=== PATIENT | female | born 1975 | race Caucasian/White ===

== ENCOUNTER 2017-06-13 08:37 | Emergency (ER) | payer OTHER ==
[~2017-06-13] VITALS: Ht 170.2 cm; Wt 82.0 kg
[~2017-06-13 08:37] MED LIST: METF1000 PO; TOPA100T11 PO; ZOFR4TAB PO; ZOLO50TA PO
[2017-06-13 08:39] VITALS: BP 150/81; PULSE 71; RESP 15; TEMP 98.1; O2SAT 99
--- NOTE | 2017-06-13 08:54 | PD ---
HPI Chief Complaint: Injury Time Seen by Provider: 08:53 Travel History International Travel<30 days: No Contact w/Intl Traveler<30days: No Traveled to known affect area: No History of Present Illness HPI 41 YO F presents to the ED for evaluation of left great toe pain and right ankle pain after dropping a box of tiles on her feet last night. She endorses worsening pain with ambulation. She denies numbness, tingling, weakness, limitations to range of motion of the extremity. Denies previous injury to the area. Treated with ibuprofen overnight. Denies risk of , endorses tubal ligation. PFSH Past Medical History Cardiovascular Problems: Yes (low hr) Diabetes: Yes Diminished Hearing: No Kidney Stones: Yes Immunizations Current: Yes Thyroid Disease: Yes (CURRENTLY BEING SEING FOR THYROID ISSUES) ?: Not : 3 Para: 2 Miscarriage: 1 : 0 Tubal Ligation: Yes Past Surgical History Section: Yes (2x) Gynecologic Surgery: Yes (C/SECTION X 2 ) Social History Alcohol Use: No Tobacco Use: No Substance Use: No Allergies-Medications (Allergen,Severity, Reaction): Coded Allergies: Atropine (Verified Allergy, Severe, SEVERE HYPERTENSION, TACHYCARDIA, 06/13) Dilaudid (Verified Allergy, Severe, Itching, 06/13/17) Sudafed (Verified Allergy, Severe, SOB, 06/13/17) Reported Meds & Prescriptions Reported Meds & Active Scripts Active Ibuprofen 600 Mg Tab 600 Mg PO Q8H PRN Zofran (Ondansetron HCl) 4 Mg Tab 4 Mg PO Q6HR PRN Reported Topamax (Topiramate) 100 Mg Tab 100 Mg PO DAILY Zoloft (Sertraline HCl) 50 Mg Tab 50 Mg PO DAILY Metformin (Metformin HCl) 1,000 Mg Tab 1,000 Mg PO BIDPC With meals Review of Systems Except as stated in HPI: all other systems reviewed are Neg Physical Exam Narrative GENERAL: Well-nourished, well-developed white female in no acute distress. SKIN: Focused skin assessment warm/dry. HEAD: Normocephalic. EYES: No scleral icterus. No injection or drainage. NECK: Supple, trachea midline. No JVD or lymphadenopathy. CARDIOVASCULAR: Regular rate and rhythm without murmurs, gallops, or rubs. RESPIRATORY: Breath sounds equal bilaterally. No accessory muscle use. GASTROINTESTINAL: Abdomen soft, non-tender, nondistended. MUSCULOSKELETAL: No cyanosis, or edema. FOCUSED LEFT LOWER EXTREMITY EXAM: 2+ DP pulse. Ecchymosis and tenderness to palpation over the dorsal aspect of the great toe. Patient maintains full, active range of motion of the ankle and toes. ROM of the great toe elicits pain. Neurovascularly intact. FOCUSED RIGHT LOWER EXTREMITY EXAM: 2+ DP pulse. Ecchymosis, edema, tenderness over the dorsal aspect of the distal calcaneus and bones of the midfoot. Patient maintains full, active range of motion of the ankle and toes. Neurovascularly intact. BACK: Nontender without obvious deformity. No CVA tenderness. Data Data Last Documented VS Vital Signs Date Time Temp Pulse Resp B/P Pulse Ox O2 Delivery O2 Flow Rate FiO2 06/13/17 09:33 76 18 99 Room Air 06/13/17 08:39 98.1 150/81 Orders Ankle, Complete ([id number]) (06/13/17 08:57) Toe (Min 2vws) (06/13/17 08:57) Ice/Cold Pack (06/13/17 08:57) Ibuprofen (Motrin) (06/13/17 09:00) Tramadol (Ultram) (06/13/17 09:00) Shoe Post Op (06/13/17 ) MDM Medical Decision Making Medical Screen Exam Complete: Yes Emergency Medical Condition: Yes Differential Diagnosis Contusion versus musculoskeletal pain versus fracture versus other Narrative Course 41 YO F presents to the ED for evaluation of left great toe pain and right ankle pain after dropping a box of tiles on her feet last night. She endorses worsening pain with ambulation. I was reviewed. Physical exam reveals ecchymosis of the MP joint of the left great toe, pain with range of motion. There is also an abrasion and edema of the dorsal aspect of the right ankle. Patient maintains full, active ROM of both lower extremities. Neurovascularly intact. X-rays of the great toe reveal no acute fracture. X-rays of the ankle reveal no acute injury per radiology read. This is contusion of the foot and great toe. Patient was prescribed a short course of anti-inflammatories, a postop shoe was applied to the left foot. She is instructed to treat symptomatically, take medications as prescribed, follow up with a strategy planning consultant if symptoms do not resolve. She indicated understanding of these instructions and is agreeable to the care plan. She is stable and discharged home. Diagnosis Primary Impression: Contusion of left great toe without damage to nail, initial encounter Additional Impression: Contusion of right ankle, initial encounter Referrals: Primary Care Physician Patient Instructions: Contusion in Adults (ED), General Instructions Additional Instructions: Rest, ice, elevate the extremity. Apply ice no longer than 10-15 minutes per hour a few times a day. 600 mg ibuprofen up to 3 times a day as needed for pain. Return to normal, gentle activity as tolerated. No running, jumping activities for the next few weeks. Follow up with strategy planning consultant or your primary care provider. Return to the ED for any urgent or emergent medical condition. Med/Other Pt SpecificInfo: Prescription(s) given Scripts Ibuprofen 600 Mg [id number] Mg PO Q8H PRN (PAIN) #15 TAB Ref 0 Prov:Heather Escobar MD 06/13/17 Disposition: 01 DISCHARGE HOME Condition: Stable Sarah Hartman Jun 13, 2017 08:54
[2017-06-13] MEDS ORDERED: traMADol HCL 50 MG TAB PO ONE (09:00)
[2017-06-13] MEDS ORDERED: IBUPROFEN 800 MG TAB PO ONE (09:00)
--- NOTE | 2017-06-13 09:23 | RADRPT ---
EXAM DATE/TIME: 06/13/2017 09:16 [facility] COMPARISON: No previous studies available for comparison. INDICATIONS : Right dorsal surface ankle pain after dropping box of tiles on foot. MEDICAL HISTORY : None. SURGICAL HISTORY : None. ENCOUNTER: Initial ACUITY: 1 day PAIN SCORE: 7/10 LOCATION: Right Ankle FINDINGS: No definite fractures, or dislocations are identified. No definite lytic or sclerotic lesion is seen . Calcaneal spur is present at the attachment site of the plantar aponeurosis. CONCLUSION: Unremarkable study except for calcaneal spur. José Miguel Powell MD on June 13, 2017 at 9:20 Board Certified Radiologist. This report was verified electronically.
--- NOTE | 2017-06-13 09:23 | RADRPT ---
EXAM DATE/TIME: 06/13/2017 09:20 [facility] COMPARISON: No previous studies available for comparison. INDICATIONS : Pain in left great toe after dropping a box of tile on it. MEDICAL HISTORY : None. SURGICAL HISTORY : None. ENCOUNTER: Initial ACUITY: 1 day PAIN SCORE: 8/10 LOCATION: Left Great Toe FINDINGS: No definite fractures, or dislocations are identified. No definite lytic or sclerotic lesion is seen . CONCLUSION: No definite fracture is seen for technique. KShonda Poewll MD on June 13, 2017 at 9:21 Board Certified Radiologist. This report was verified electronically.
[2017-06-13] MEDS ORDERED: IBUP-232 PO (09:27)
== END 2017-06-13 09:51 | disposition home or self-care (01) ==
LOC: NEPD 08:37
DX: S90.112A Contusion of left great toe without damage to nail, initial encounter (principal); S90.01XA Contusion of right ankle, initial encounter; E11.9 Type 2 diabetes mellitus without complications; E07.9 Disorder of thyroid, unspecified; Z86.79 Personal history of other diseases of the circulatory system; Z87.442 Personal history of urinary calculi; W20.8XXA Other cause of strike by thrown, projected or falling object, initial encounter
CPT/HCPCS: 73610; 73660; 99283; L3260

== ENCOUNTER 2017-12-21 12:46 | Emergency (ER) | payer OTHER ==
[~2017-12-21] VITALS: Ht 170.2 cm; Wt 95.5 kg
[~2017-12-21 12:46] MED LIST changes: +IBUP-232 PO; -TOPA100T11 PO; +TOPI100 PO
[2017-12-21 12:47] VITALS: BP 157/76; PULSE 106; RESP 18; TEMP 99.5; O2SAT 97
[2017-12-21 14:31] LABS: AUTOMATED NEUTROPHIL # 4.8 TH/MM3 (1.8-7.7); BASOPHIL # 0.1 TH/MM3 (0-0.2); BASOPHIL % 0.8 % (0.0-2.0); EOSINOPHIL # 0.2 TH/MM3 (0-0.4); EOSINOPHIL % 1.8 % (0.0-4.0); HEMATOCRIT 41.2 % (35.0-46.0); HEMOGLOBIN 14.1 GM/DL (11.6-15.3); LYMPH % 36.1 % (9.0-44.0); LYMPHOCYTE # 3.3 TH/MM3 (1.0-4.8); MEAN CELL VOLUME 84.9 FL (80.0-100.0); MEAN CORPUSCULAR HEMOGLOBIN 29.1 PG (27.0-34.0); MEAN CORPUSCULAR HGB CONC 34.3 % (32.0-36.0); MEAN PLATELET VOLUME 9.4 FL (7.0-11.0); MONO % 8.7 % (0.0-8.0); MONOCYTE # 0.8 TH/MM3 (0-0.9); NEUT % 52.6 % (16.0-70.0); PLATELET COUNT 273 TH/MM3 (150-450); RED BLOOD COUNT 4.85 MIL/MM3 (4.00-5.30); RED CELL DISTRIBUTION WIDTH 14.9 % (11.6-17.2); WHITE BLOOD COUNT 9.1 TH/MM3 (4.0-11.0)
[2017-12-21 14:37] LABS: AMORPHOUS SEDIMENT, URINE MOD; BACTERIA, URINE RARE /hpf; BILIRUBIN, URINE NEG (NEG); BLOOD, URINE NEG (NEG); GLUCOSE,URINE NEG (NEG); KETONE, URINE NEG (NEG); MUCUS URINE FEW /lpf (OCC); NITRITE,URINE NEG (NEG); PH, URINE 6.5 (5.0-8.5); SQUAMOUS EPITHELIAL CELL URINE 2 /hpf (0-5); URINE COLOR YELLOW (YELLW/STRAW); URINE LEUKOCYTE ESTERASE NEG (NEG)
[2017-12-21 14:52] LABS: ALBUMIN 3.9 GM/DL (3.4-5.0); ALT (GPT) 25 U/L (10-53); AST (GOT) 19 U/L (15-37); BICARBONATE 21.7 MEQ/L (21.0-32.0); BLOOD UREA NITROGEN 10 MG/DL (7-18); CALCIUM 8.4 MG/DL (8.5-10.1); CHLORIDE 114 MEQ/L (98-107); CREATININE 0.61 MG/DL (0.50-1.00); GLOMERULAR FILTRATION RATE 108 ML/MIN (>89); GLUCOSE,RANDOM 90 MG/DL (74-106); SODIUM (NA) 144 MEQ/L (136-145)
[2017-12-21 14:53] LABS: ALKALINE PHOSPHATASE 80 U/L (45-117); TOTAL BILIRUBIN ADULT 0.2 MG/DL (0.2-1.0); TOTAL PROTEIN 7.5 GM/DL (6.4-8.2)
[2017-12-21] MEDS ORDERED: SODIUM CHLOR 0.9% 1000 ML INJ 1,000 ML IV SCH (14:55)
[2017-12-21 15:00] VITALS: O2SAT 98
[2017-12-21] MEDS ORDERED: ONDANSETRON HCL 4 MG/2 ML VIAL IVP ONE (15:00)
[2017-12-21] MEDS ORDERED: LIDOCAINE VISCOUS 2% SOLN 15 ML UDC PO ONE (15:00)
[2017-12-21] MEDS ORDERED: FAMOTIDINE 20 MG/2 ML VIAL IV PUSH ONE (15:00)
[2017-12-21] MEDS ORDERED: ALUMINUM/MAGNESIUM/SIMETH 30 ML CUP PO ONE (15:00)
[2017-12-21] MEDS ORDERED: MORPHINE SULFATE 4 MG/ML INJ IV PUSH ONE (15:00)
[2017-12-21] MEDS ORDERED: SODIUM CHLORIDE 0.9% FLUSH 10 ML FLUSH IV FLUSH PRN (15:00)
--- NOTE | 2017-12-21 15:06 | PD ---
HPI Chief Complaint: Abdominal Pain Time Seen by Provider: 14:44 Travel History International Travel<30 days: No Contact w/Intl Traveler<30days: No Traveled to known affect area: No History of Present Illness HPI The patient is a 42-year-old female who presents to the emergency department for 3 days of nausea, vomiting, epigastric abdominal pain that radiates to the back, and diarrhea. The patient denies any fever, chills, or sweats. She does note nausea and vomiting. The patient has epigastric to left upper quadrant abdominal pain that radiates to the back, burning in nature. She does have a history of reflux with previous endoscopy revealing gastritis. She also complains of diarrhea that she describes as loose, watery, without any visible blood. She denies any recent international travel or sick contacts. Previous abdominal surgeries include section. She also complains of polyuria but denies any dysuria. She states she has not taken her metformin in a week and a half. Symptoms are moderate. There are no current alleviating or exacerbating factors. She has an appointment tomorrow with her primary physician. PFSH Past Medical History Cardiovascular Problems: Yes (low hr) Diabetes: Yes Patient Takes Glucophage: Yes Diminished Hearing: No Kidney Stones: Yes Immunizations Current: Yes Migraines: Yes Thyroid Disease: Yes (Darin's) ?: Not : 3 Para: 2 Miscarriage: 1 : 0 Tubal Ligation: Yes Past Surgical History Section: Yes (2x) Gynecologic Surgery: Yes (C/SECTION X 2 ) Social History Alcohol Use: No Tobacco Use: No Substance Use: No Allergies-Medications (Allergen,Severity, Reaction): Coded Allergies: atropine (Unverified Allergy, Severe, SEVERE HYPERTENSION, TACHYCARDIA, ) hydromorphone (Unverified Allergy, Severe, Itching, 06/28/17) pseudoephedrine (Unverified Allergy, Severe, SOB, 06/28/17) Reported Meds & Prescriptions Reported Meds & Active Scripts Active Reported Zoloft (Sertraline HCl) 50 Mg Tab 50 Mg PO DAILY Metformin (Metformin HCl) 1,000 Mg Tab 1,000 Mg PO BIDPC With meals Review of Systems Except as stated in HPI: all other systems reviewed are Neg General / Constitutional: No: Fever Cardiovascular: No: Chest Pain or Discomfort Respiratory: No: Shortness of Breath Gastrointestinal: Positive: Nausea, Vomiting, Diarrhea, Abdominal Pain, Indigestion Genitourinary: Positive: Frequency, No: Dysuria Endocrine: Positive: Polyuria Physical Exam Narrative GENERAL: Awake, alert, pleasant 42-year-old female who appears her stated age and is in no acute respiratory distress. SKIN: Focused skin assessment warm/dry. HEAD: Atraumatic. Normocephalic. EYES: Pupils equal and round. 3 mm bilateral and reactive. EOMs are intact. Patient is able to see fingers at a distance of 2 feet without difficulty. ENT: No nasal bleeding or discharge. Slightly dry mucous membranes. NECK: Trachea midline. No JVD. CARDIOVASCULAR: Regular rate and rhythm. No murmur appreciated. RESPIRATORY: No accessory muscle use. Clear to auscultation. Breath sounds equal bilaterally. GASTROINTESTINAL: Abdomen soft, mild epigastric tenderness. No guarding or rigidity. Negative Velazquez's. Negative McBurney's. No tenderness in the lower quadrants. Back: No CVA tenderness. MUSCULOSKELETAL: No obvious deformities. No clubbing. No cyanosis. No edema. NEUROLOGICAL: Awake and alert. No obvious cranial nerve deficits. Motor grossly within normal limits. Normal speech. PSYCHIATRIC: Appropriate mood and affect; insight and judgment normal. Data Data Last Documented VS Vital Signs Date Time Temp Pulse Resp B/P (MAP) Pulse Ox O2 Delivery O2 Flow Rate FiO2 12/21/17 15:00 98 Room Air 12/21/17 12:47 99.5 106 18 Orders Orders Complete Blood Count With Diff (12/21/17 12:55) Comprehensive Metabolic Panel (12/21/17 12:55) Lipase (12/21/17 12:55) Urinalysis - C+S If Indicated (12/21/17 12:55) Ed Urine Pregnancytest Poc (12/21/17 12:55) Influenzae A/B Antigen (12/21/17 12:55) Iv Access Insert/Monitor (12/21/17 14:55) Ecg Monitoring (12/21/17 14:55) Oximetry (12/21/17 14:55) Morphine Inj (Morphine Inj) (12/21/17 15:00) Ondansetron Inj (Zofran Inj) (12/21/17 15:00) Sodium Chlor 0.9% 1000 Ml Inj (Ns 1000 M (12/21/17 14:55) Sodium Chloride 0.9% Flush (Ns Flush) (12/21/17 15:00) Famotidine Inj (Pepcid Inj) (12/21/17 15:00) Al-Mag Hy-Si 40-40-4 Mg/Ml Liq (Mag-Al P (12/21/17 15:00) Lidocaine 2% Viscous (Xylocaine 2% Visco (12/21/17 15:00) Labs Laboratory Tests Test 12/21/17 13:51 White Blood Count 9.1 TH/MM3 Red Blood Count 4.85 MIL/MM3 Hemoglobin 14.1 GM/DL Hematocrit 41.2 % Mean Corpuscular Volume 84.9 FL Mean Corpuscular Hemoglobin 29.1 PG Mean Corpuscular Hemoglobin Concent 34.3 % Red Cell Distribution Width 14.9 % Platelet Count 273 TH/MM3 Mean Platelet Volume 9.4 FL Neutrophils (%) (Auto) 52.6 % Lymphocytes (%) (Auto) 36.1 % Monocytes (%) (Auto) 8.7 % Eosinophils (%) (Auto) 1.8 % Basophils (%) (Auto) 0.8 % Neutrophils # (Auto) 4.8 TH/MM3 Lymphocytes # (Auto) 3.3 TH/MM3 Monocytes # (Auto) 0.8 TH/MM3 Eosinophils # (Auto) 0.2 TH/MM3 Basophils # (Auto) 0.1 TH/MM3 CBC Comment DIFF FINAL Differential Comment Urine Color YELLOW Urine Turbidity HAZY Urine pH 6.5 Urine Specific [place] 1.024 Urine Protein TRACE mg/dL Urine Glucose (UA) NEG mg/dL Urine Ketones NEG mg/dL Urine Occult Blood NEG Urine Nitrite NEG Urine Bilirubin NEG Urine Urobilinogen LESS THAN 2.0 MG/DL Urine Leukocyte Esterase NEG Urine RBC 1 /hpf Urine Squamous Epithelial Cells 2 /hpf Urine Amorphous Sediment MOD Urine Bacteria RARE /hpf Urine Mucus FEW /lpf Microscopic Urinalysis Comment CULT NOT INDICATED Blood Urea Nitrogen 10 MG/DL Creatinine 0.61 MG/DL Random Glucose 90 MG/DL Total Protein 7.5 GM/DL Albumin 3.9 GM/DL Calcium Level 8.4 MG/DL Alkaline Phosphatase 80 U/L Aspartate Amino Transf (AST/SGOT) 19 U/L Alanine Aminotransferase (ALT/SGPT) 25 U/L Total Bilirubin 0.2 MG/DL Sodium Level 144 MEQ/L Potassium Level 3.7 MEQ/L Chloride Level 114 MEQ/L Carbon Dioxide Level 21.7 MEQ/L Anion Gap 8 MEQ/L Estimat Glomerular Filtration Rate 108 ML/MIN Lipase 155 U/L [facility] Medical Decision Making Medical Screen Exam Complete: Yes Emergency Medical Condition: Yes Medical Record Reviewed: Yes Interpretation(s) Laboratory Tests Test 12/21/17 13:51 White Blood Count 9.1 TH/MM3 Red Blood Count 4.85 MIL/MM3 Hemoglobin 14.1 GM/DL Hematocrit 41.2 % Mean Corpuscular Volume 84.9 FL Mean Corpuscular Hemoglobin 29.1 PG Mean Corpuscular Hemoglobin Concent 34.3 % Red Cell Distribution Width 14.9 % Platelet Count 273 TH/MM3 Mean Platelet Volume 9.4 FL Neutrophils (%) (Auto) 52.6 % Lymphocytes (%) (Auto) 36.1 % Monocytes (%) (Auto) 8.7 % Eosinophils (%) (Auto) 1.8 % Basophils (%) (Auto) 0.8 % Neutrophils # (Auto) 4.8 TH/MM3 Lymphocytes # (Auto) 3.3 TH/MM3 Monocytes # (Auto) 0.8 TH/MM3 Eosinophils # (Auto) 0.2 TH/MM3 Basophils # (Auto) 0.1 TH/MM3 CBC Comment DIFF FINAL Differential Comment Urine Color YELLOW Urine Turbidity HAZY Urine pH 6.5 Urine Specific [place] 1.024 Urine Protein TRACE mg/dL Urine Glucose (UA) NEG mg/dL Urine Ketones NEG mg/dL Urine Occult Blood NEG Urine Nitrite NEG Urine Bilirubin NEG Urine Urobilinogen LESS THAN 2.0 MG/DL Urine Leukocyte Esterase NEG Urine RBC 1 /hpf Urine Squamous Epithelial Cells 2 /hpf Urine Amorphous Sediment MOD Urine Bacteria RARE /hpf Urine Mucus FEW /lpf Microscopic Urinalysis Comment CULT NOT INDICATED Blood Urea Nitrogen 10 MG/DL Creatinine 0.61 MG/DL Random Glucose 90 MG/DL Total Protein 7.5 GM/DL Albumin 3.9 GM/DL Calcium Level 8.4 MG/DL Alkaline Phosphatase 80 U/L Aspartate Amino Transf (AST/SGOT) 19 U/L Alanine Aminotransferase (ALT/SGPT) 25 U/L Total Bilirubin 0.2 MG/DL Sodium Level 144 MEQ/L Potassium Level 3.7 MEQ/L Chloride Level 114 MEQ/L Carbon Dioxide Level 21.7 MEQ/L Anion Gap 8 MEQ/L Estimat Glomerular Filtration Rate 108 ML/MIN Lipase 155 U/L Differential Diagnosis Differential diagnosis includes gastroenteritis, pancreatitis, colitis, enteritis, food poisoning, electrolyte abnormality. Narrative Course IV was established, labs are drawn and sent, and the patient was placed on cardiac telemetry monitoring and continuous pulse oximetry monitoring. The patient was administered Pepcid, morphine, Zofran, GI cocktail, and IV fluids. Labs are unremarkable. White count is normal. LFTs and lipase are within normal limits. UA is negative. Patient was reevaluated at 4:40 PM. Her symptoms had improved, she still had mild epigastric burning. Patient most likely has gastritis and/or peptic ulcer disease and topic gastroenteritis. The patient was placed on Zantac, Zofran, and Newborn. She will be provided a copy of her labs at discharge. She has an appointment tomorrow morning with her primary physician, Dr. Cipriano Mace. She is advised if symptoms persist she may need to see gastroenterology for outpatient endoscopy. The patient agrees and understands. Diagnosis Primary Impression: Gastroenteritis Patient Instructions: General Instructions Additional Instructions: Please provide a patient a copy of her labs at discharge. Follow-up with her primary physician tomorrow as scheduled. Zantac twice a day. Avoid spearmint, peppermint, alcohol, nicotine, and spicy foods. Clear liquid diet and advance as tolerated. Med/Other Pt SpecificInfo: Prescription(s) given Scripts Ondansetron Odt (Zofran Odt) 4 Mg Tab 4 MG SL Q6HR Y for Nausea/Vomiting, #10 TAB 0 Refills Prov: Guicho Hu MD 12/21/17 Hydrocodone-Acetaminophen (Newborn) 5 Mg-325 Mg Tab 1 TAB PO Q6H Y for PAIN, #12 TAB 0 Refills Prov: Guicho Hu MD 12/21/17 Ranitidine (Zantac 150 Maximum Strength) 150 Mg Tab 150 MG PO BID for 14 Days, #28 TAB Prov: Guicho Hu MD 12/21/17 Disposition: 01 DISCHARGE HOME Condition: Stable Guicho Hu MD Dec 21, 2017 15:06
[2017-12-21] MEDS ORDERED: NORC5TAB PO (16:46)
[2017-12-21] MEDS ORDERED: ZOFR4TAB3 SL (16:46)
[2017-12-21] MEDS ORDERED: ZANTTAB PO (16:46)
[2017-12-21 18:15] VITALS: RESP 16
== END 2017-12-21 18:16 | disposition home or self-care (01) ==
LOC: NEPD 12:46
DX: K52.9 Noninfective gastroenteritis and colitis, unspecified (principal); E11.9 Type 2 diabetes mellitus without complications; E06.3 Autoimmune thyroiditis
CPT/HCPCS: 80053; 81001; 83690; 84703; 85025; 87804; 96361; 96374; 96375; 99284; J2270; J2405; J7030

== ENCOUNTER 2018-03-16 05:27 | Emergency (ER) | payer SELFPAY ==
[~2018-03-16 05:27] MED LIST changes: -IBUP-232 PO; +NORC5TAB PO; -TOPI100 PO; +ZANTTAB PO; -ZOFR4TAB PO; +ZOFR4TAB3 SL
[2018-03-16 05:31] VITALS: BP 160/77; PULSE 83; RESP 18; TEMP 97.2; O2SAT 99
[2018-03-16] MEDS ORDERED: SODIUM CHLORIDE 0.9% FLUSH 10 ML FLUSH IVF PRN (05:45)
[2018-03-16] MEDS ORDERED: PROCHLORPERAZINE INJ 10 MG/2 ML VIAL IVP ONE (05:45)
[2018-03-16] MEDS ORDERED: SODIUM CHLORID 0.9% 500 ML INJ 500 ML IV ONE (06:00)
[2018-03-16 06:04] LABS: AUTOMATED NEUTROPHIL # 3.9 TH/MM3 (1.8-7.7); BASOPHIL % 0.5 % (0.0-2.0); EOSINOPHIL # 0.2 TH/MM3 (0-0.4); HEMOGLOBIN 13.7 GM/DL (11.6-15.3); LYMPH % 42.7 % (9.0-44.0); LYMPHOCYTE # 3.8 TH/MM3 (1.0-4.8); MEAN CELL VOLUME 84.8 FL (80.0-100.0); MEAN CORPUSCULAR HGB CONC 34.3 % (32.0-36.0); MEAN PLATELET VOLUME 9.7 FL (7.0-11.0); MONO % 10.4 % (0.0-8.0); MONOCYTE # 0.9 TH/MM3 (0-0.9); NEUT % 44.4 % (16.0-70.0); PLATELET COUNT 250 TH/MM3 (150-450); RED BLOOD COUNT 4.71 MIL/MM3 (4.00-5.30); RED CELL DISTRIBUTION WIDTH 14.5 % (11.6-17.2); WHITE BLOOD COUNT 8.9 TH/MM3 (4.0-11.0)
[2018-03-16 06:14] VITALS: O2SAT 97
[2018-03-16 06:19] LABS: ALBUMIN 3.4 GM/DL (3.4-5.0); ALT (GPT) 23 U/L (10-53); AST (GOT) 17 U/L (15-37); BLOOD UREA NITROGEN 9 MG/DL (7-18); CALCIUM 8.7 MG/DL (8.5-10.1); CHLORIDE 109 MEQ/L (98-107); GLOMERULAR FILTRATION RATE 92 ML/MIN (>89); GLUCOSE,RANDOM 93 MG/DL (74-106); SODIUM (NA) 142 MEQ/L (136-145)
--- NOTE | 2018-03-16 06:20 | PD ---
HPI Chief Complaint: Headache Time Seen by Provider: 05:37 Travel History International Travel<30 days: No Contact w/Intl Traveler<30days: No Traveled to known affect area: No History of Present Illness HPI Patient presents to the emergency department complaint of headache and feeling "sick to my stomach." Pain started 3:30 this morning while she was asleep. She does have a history of migraines, but states that this headache is more intense. Reports photophobia, but denies numbness/tingling/vision change. Advises that she has a rash from the sun across her chest and she has chronic neck pain. Of note she states the neck pain is common with her migraine headaches. Additionally, she was reportedly going to get neck injection thsi week to help with her chronic neck pain. PFSH Past Medical History Cardiovascular Problems: Yes (low hr) Diabetes: Yes Patient Takes Glucophage: No Diminished Hearing: No Kidney Stones: Yes Immunizations Current: Yes Migraines: Yes Thyroid Disease: Yes (Darin's) ?: Not LMP: 02/23/18 : 3 Para: 2 Miscarriage: 1 : 0 Tubal Ligation: Yes Past Surgical History Section: Yes (2x) Gynecologic Surgery: Yes (C/SECTION X 2 ) Social History Alcohol Use: No Tobacco Use: Yes Substance Use: No Allergies-Medications (Allergen,Severity, Reaction): Coded Allergies: atropine (Unverified Allergy, Severe, SEVERE HYPERTENSION, TACHYCARDIA, 03/16/18) hydromorphone (Unverified Allergy, Severe, Itching, 03/16/18) pseudoephedrine (Unverified Allergy, Severe, SOB, 03/16/18) Reported Meds & Prescriptions Reported Meds & Active Scripts Active Zantac 150 Maximum Strength (Ranitidine HCl) 150 Mg Tab 150 Mg PO BID 14 Days Reported Zoloft (Sertraline HCl) 50 Mg Tab 50 Mg PO DAILY Metformin (Metformin HCl) 1,000 Mg Tab 1,000 Mg PO BIDPC With meals Review of Systems Except as stated in HPI: all other systems reviewed are Neg Physical Exam Narrative GENERAL: Positive discomfort SKIN: Focused skin assessment warm/dry; + sunburn on anterior aspect of chest, primarily L breast area. HEAD: Atraumatic. Normocephalic. EYES: Pupils equal and round and Extraocular muscles intact bilat. No scleral icterus. No injection or drainage. ENT: No nasal bleeding or discharge. Mucous membranes pink and moist. NECK: Trachea midline. No JVD. Supple, full range of motion. No meningeal signs. CARDIOVASCULAR: Regular rate and rhythm. No murmur appreciated. RESPIRATORY: No accessory muscle use. Clear to auscultation. Breath sounds equal bilaterally. GASTROINTESTINAL: Abdomen soft, non-tender, nondistended. MUSCULOSKELETAL: No obvious deformities. No clubbing. No cyanosis. No edema. NEUROLOGICAL: Awake and alert. No obvious cranial nerve deficits. Motor grossly within normal limits. Normal speech. PSYCHIATRIC: Appropriate mood and affect; insight and judgment normal. Data Data Last Documented VS Vital Signs Date Time Temp Pulse Resp B/P (MAP) Pulse Ox O2 Delivery O2 Flow Rate FiO2 03/16/18 06:14 97 Room Air 03/16/18 05:31 97.2 83 18 Orders Orders Complete Blood Count With Diff (03/16/18 05:45) Comprehensive Metabolic Panel (03/16/18 05:45) Ct Brain W/O Iv Contrast(Rout) (03/16/18 05:45) Ecg Monitoring (03/16/18 05:45) Iv Access Insert/Monitor (03/16/18 05:45) Oximetry (03/16/18 05:45) Sodium Chloride 0.9% Flush (Ns Flush) (03/16/18 05:45) Prochlorperazine Inj (Compazine Inj) (03/16/18 05:45) Ed Urine Pregnancytest Poc (03/16/18 05:45) Sodium Chlorid 0.9% 500 Ml Inj (Ns 500 M (03/16/18 06:00) Ketorolac Inj (Toradol Inj) (03/16/18 07:15) Labs Laboratory Tests Test 03/16/18 05:50 White Blood Count 8.9 TH/MM3 Red Blood Count 4.71 MIL/MM3 Hemoglobin 13.7 GM/DL Hematocrit 40.0 % Mean Corpuscular Volume 84.8 FL Mean Corpuscular Hemoglobin 29.0 PG Mean Corpuscular Hemoglobin Concent 34.3 % Red Cell Distribution Width 14.5 % Platelet Count 250 TH/MM3 Mean Platelet Volume 9.7 FL Neutrophils (%) (Auto) 44.4 % Lymphocytes (%) (Auto) 42.7 % Monocytes (%) (Auto) 10.4 % Eosinophils (%) (Auto) 2.0 % Basophils (%) (Auto) 0.5 % Neutrophils # (Auto) 3.9 TH/MM3 Lymphocytes # (Auto) 3.8 TH/MM3 Monocytes # (Auto) 0.9 TH/MM3 Eosinophils # (Auto) 0.2 TH/MM3 Basophils # (Auto) 0.0 TH/MM3 CBC Comment DIFF FINAL Differential Comment Blood Urea Nitrogen 9 MG/DL Creatinine 0.70 MG/DL Random Glucose 93 MG/DL Total Protein 7.0 GM/DL Albumin 3.4 GM/DL Calcium Level 8.7 MG/DL Alkaline Phosphatase 76 U/L Aspartate Amino Transf (AST/SGOT) 17 U/L Alanine Aminotransferase (ALT/SGPT) 23 U/L Total Bilirubin 0.2 MG/DL Sodium Level 142 MEQ/L Potassium Level 3.9 MEQ/L Chloride Level 109 MEQ/L Carbon Dioxide Level 26.0 MEQ/L Anion Gap 7 MEQ/L Estimat Glomerular Filtration Rate 92 ML/MIN [facility] Medical Decision Making Medical Screen Exam Complete: Yes Emergency Medical Condition: Yes Interpretation(s) Labs: wnl Last Impressions Head CT 03/16/18 0545 Signed Impressions: Service Date/Time: March 06:32 - CONCLUSION: Negative exam. Hany Ribeiro MD Differential Diagnosis Migraine headache, tension headache, intracranial abnormality Narrative Course Patient presents to the emergency department complaining of headache and nausea / vomiting. She does have a history of migraines. Given 10 mg IV Compazine and IV 500cc NS initially while awaiting CT scan. 0701: Patient's CT scan resulted negative. Upon reassessment, patient reports feeling better, n/v resolved. Will give another 500cc IV NS and 30mg IV toradol and sign patient out to Dr. Escobar for reassessment. Diagnosis Primary Impression: Migraine Qualified Codes: G43.909 - Migraine, unspecified, not intractable, without status migrainosus Cheryl Burnett MD March 16, 2018 06:20
[2018-03-16 06:22] LABS: ALKALINE PHOSPHATASE 76 U/L (45-117); TOTAL BILIRUBIN ADULT 0.2 MG/DL (0.2-1.0)
--- NOTE | 2018-03-16 06:49 | RADRPT ---
EXAM DATE/TIME: 03/16/2018 06:32 [facility] COMPARISON: No previous studies available for comparison. INDICATIONS : Cephalgia. RADIATION DOSE: 56.35 CTDIvol (mGy) MEDICAL HISTORY : Hashimotos disease. SURGICAL HISTORY : None. ENCOUNTER: Initial ACUITY: 1 day PAIN SCALE: 7/10 LOCATION: cranial TECHNIQUE: Multiple contiguous axial images were obtained of the head. Using automated exposure control and adj ustment of the mA and/or kV according to patient size, radiation dose was kept as low as reasonably a chievable to obtain optimal diagnostic quality images. DICOM format image data is available electro nically for review and comparison. FINDINGS: CEREBRUM: The ventricles are normal for age. No evidence of midline shift, mass lesion, hemorrhage or acute in farction. No extra-axial fluid collections are seen. POSTERIOR FOSSA: The cerebellum and brainstem are intact. The 4th ventricle is midline. The cerebellopontine angle i s unremarkable. EXTRACRANIAL: The visualized portion of the orbits is intact. SKULL: The calvaria is intact. No evidence of skull fracture. CONCLUSION: Negative exam. Hany Ribeiro MD on March 16, 2018 at 6:46 Board Certified Radiologist. This report was verified electronically.
[2018-03-16] MEDS ORDERED: KETOROLAC TROMETHAMINE 30 MG/ML (IVP) VIAL IV PUSH ONE (07:15)
[2018-03-16] MEDS ORDERED: NAPR500T2 PO (07:47)
--- NOTE | 2018-03-16 07:47 | PD ---
Data Data Last Documented VS Vital Signs Date Time Temp Pulse Resp B/P (MAP) Pulse Ox O2 Delivery O2 Flow Rate FiO2 03/16/18 06:14 97 Room Air 03/16/18 05:31 97.2 83 18 Orders Orders Complete Blood Count With Diff (03/16/18 05:45) Comprehensive Metabolic Panel (03/16/18 05:45) Ct Brain W/O Iv Contrast(Rout) (03/16/18 05:45) Ecg Monitoring (03/16/18 05:45) Iv Access Insert/Monitor (03/16/18 05:45) Oximetry (03/16/18 05:45) Sodium Chloride 0.9% Flush (Ns Flush) (03/16/18 05:45) Prochlorperazine Inj (Compazine Inj) (03/16/18 05:45) Ed Urine Pregnancytest Poc (03/16/18 05:45) Sodium Chlorid 0.9% 500 Ml Inj (Ns 500 M (03/16/18 06:00) Ketorolac Inj (Toradol Inj) (03/16/18 07:15) Labs Laboratory Tests Test 03/16/18 05:50 White Blood Count 8.9 TH/MM3 Red Blood Count 4.71 MIL/MM3 Hemoglobin 13.7 GM/DL Hematocrit 40.0 % Mean Corpuscular Volume 84.8 FL Mean Corpuscular Hemoglobin 29.0 PG Mean Corpuscular Hemoglobin Concent 34.3 % Red Cell Distribution Width 14.5 % Platelet Count 250 TH/MM3 Mean Platelet Volume 9.7 FL Neutrophils (%) (Auto) 44.4 % Lymphocytes (%) (Auto) 42.7 % Monocytes (%) (Auto) 10.4 % Eosinophils (%) (Auto) 2.0 % Basophils (%) (Auto) 0.5 % Neutrophils # (Auto) 3.9 TH/MM3 Lymphocytes # (Auto) 3.8 TH/MM3 Monocytes # (Auto) 0.9 TH/MM3 Eosinophils # (Auto) 0.2 TH/MM3 Basophils # (Auto) 0.0 TH/MM3 CBC Comment DIFF FINAL Differential Comment Blood Urea Nitrogen 9 MG/DL Creatinine 0.70 MG/DL Random Glucose 93 MG/DL Total Protein 7.0 GM/DL Albumin 3.4 GM/DL Calcium Level 8.7 MG/DL Alkaline Phosphatase 76 U/L Aspartate Amino Transf (AST/SGOT) 17 U/L Alanine Aminotransferase (ALT/SGPT) 23 U/L Total Bilirubin 0.2 MG/DL Sodium Level 142 MEQ/L Potassium Level 3.9 MEQ/L Chloride Level 109 MEQ/L Carbon Dioxide Level 26.0 MEQ/L Anion Gap 7 MEQ/L Estimat Glomerular Filtration Rate 92 ML/MIN [facility] Supervised Visit with VINICIUS: Yes Narrative Course This is a 42-year-old female who presents to the emergency department with headache similar to prior migraine headaches but worse today. CT scan is reassuring. Patient has a normal gross neurologic exam. She feels much better after Compazine and IV fluids. Patient will be discharged home on anti- inflammatories. I doubt subarachnoid hemorrhage given the similarity of the patient's headache to her prior. Diagnosis Primary Impression: Migraine Qualified Codes: G43.909 - Migraine, unspecified, not intractable, without status migrainosus Patient Instructions: General Instructions Additional Instruction: If you develop severe worsening headache, persistent vomiting, numbness, weakness, difficulty walking or difficulty talking return to the emergency department immediately. Sometimes in the emergency department we did not identify the cause of headaches. If you continued to have headaches it is very important that you followup with your primary care physician as you may need further testing with an MRI. Med/Other Pt SpecificInfo: Prescription(s) given Scripts Naproxen (Naproxen) 500 Mg Tab 500 MG PO BID Y for PAIN SCALE 4 TO 10, #20 TAB 0 Refills Prov: Heather Escobar MD 03/16/18 Disposition: 01 DISCHARGE HOME Condition: Stable Heather Escobar MD March 16, 2018 07:47
== END 2018-03-16 09:13 | disposition home or self-care (01) ==
LOC: NEPC 05:27
DX: G43.909 Migraine, unspecified, not intractable, without status migrainosus (principal); E11.9 Type 2 diabetes mellitus without complications; Z79.84 Long term (current) use of oral hypoglycemic drugs
CPT/HCPCS: 70450; 80053; 84703; 85025; 96361; 96374; 96375; 99284; J0780; J1885; J7040

== ENCOUNTER 2018-08-21 12:33 | Observation (INO) ==
[2018-08-21] MEDS ORDERED: Aspirin 325 MG Tablet PO ONE (12:43)
[2018-08-21] MEDS ORDERED: PROPRANOLOL 1 MG/ML IV.PUSH ONE (12:58)
--- NOTE | 2018-08-21 13:27 | XR ---
EXAM DATE: 08/21/2018 12:43 PM EDT AGE/SEX: 42 years / Female INDICATIONS: Chest pain. CLINICAL DATA: This is the patient's initial encounter. Patient reports that signs and symptoms have been present for 1 day and indicates a pain score of 8/10. MEDICAL/SURGICAL HISTORY: None. None. [place] [facility] [place]. . FINDINGS: A single AP view of the chest demonstrates the lungs to be symmetrically aerated without evidence of mass, infiltrate or effusion. The cardiomediastinal contours are unremarkable. Osseous structures a re intact. CONCLUSION: No acute cardiopulmonary disease Electronically signed by: David Oro MD 08/21/2018 1:25 PM EDT
[2018-08-21 13:36] LABS: Baso % (Auto) 0.7 % (0.0-2.0); Eos # (Auto) 0.2 th/mm3 (0.0-0.4); Eos % (Auto) 2.4 % (0.0-4.0); Hematocrit 41.7 % (35.0-46.0); Hemoglobin 14.3 gm/dL (11.6-15.3); Lymph # (Auto) 2.6 th/mm3 (1.0-4.8); Lymph % (Auto) 38.3 % (9.0-44.0); Mean Corpuscular HGB Conc 34.2 % (32.0-36.0); Mean Corpuscular Hemoglobin 29.5 pg (27.0-34.0); Mean Corpuscular Volume 86.4 fL (80.0-100.0); Mean Platelet Volume 9.6 fL (7.0-11.0); Mono # (Auto) 0.5 th/mm3 (0.0-0.9); Neut # (Auto) 3.5 th/mm3 (1.8-7.7); Neut % (Auto) 51.6 % (16.0-70.0); Platelet Count 244 th/mm3 (150-450); Red Blood Count 4.83 mil/mm3 (4.00-5.30); Red Cell Distribution Width 13.8 % (11.6-17.2); White Blood Count 6.8 th/mm3 (4.0-11.0)
[2018-08-21 13:50] LABS: Activated Partial Thrombo Time 26.1 sec (24.3-30.1); Prothrombin Time 10.2 sec (9.8-11.6)
--- NOTE | 2018-08-21 14:38 | ED ---
HPI General Chief complaint: Chest Pain Stated complaint: chest pain Time Seen by Provider: 08/21/18 12:42 Source: patient Mode of arrival: ambulatory Limitations: no limitations History of Present Illness HPI narrative: 42-year-old female that presents to the ED for evaluation of shortness of breath and chest pain for the past 3 days. Per patient is been going on for about 3 days now. Per patient no changes in medication recently. She does have a history of bradycardia in the past after she had her child. Per patient she was given atropine and she had an allergy to it. Per patient she has not had any issues since. Denies any urinary or bowel movement issues. Denies any recent travel. No recent surgeries. Per patient currently she mainly takes medications for anxiety and depression. She states that she is never had this before. She feels like she is palpitating as well. Per patient the symptoms do not really get better or worse with anything. She did not took anything for this. She was not seen by anybody for this. Per patient the discomfort is 6 out of 10 and feels like a pressure on her chest. She does state that she has a history of Darin's and Graves' disease but she is currently not being treated for it. Per patient she has not about this disease for a few years but she has never been given any medications for it. Unclear as to why. Per patient she does follow regularly with an grizzly worker for this. Related Data Home Medications Medication Instructions Recorded Confirmed sumatriptan-naproxen 1 tab PO Q2-4H PRN 06/15/18 08/21/18 gabapentin 600 mg PO DAILY 08/21/18 08/21/18 metformin 1,000 mg PO BID 08/21/18 08/21/18 Previous Rx's Medication Instructions Recorded ibuprofen 800 mg PO Q8H PRN #20 tab 06/16/18 Allergies Allergy/AdvReac Type Severity Reaction Status Date / Time atropine Allergy Severe SEVERE Verified 08/21/18 12:48 HYPERTENSION, TACHYCARDIA hydromorphone Allergy Severe Itching Verified 08/21/18 12:48 pseudoephedrine Allergy Severe SOB Verified 08/21/18 12:48 Review of Systems ROS: all other systems reviewed are negative [facility] Medical History Medical History Borderline type 2 diabetes mellitus (Acute) Chronic back pain (Acute) Darin's disease (Acute) Migraine (Acute) Surgical History Surgical History H/O tubal ligation (Acute) H/O: section (Acute) Social History Social History Substance History: No History of Abuse Second Hand Smoke Exposure: No Smoking Status: Current every day smoker Tobacco Type: Cigarettes Packs Per Day: 1 Cigarettes Per Day: 20.0 Years Smoked: 25 Pack-Years: 25.00 How Often Do You Have a Drink Containing Alcohol: Never Recent Out of Country Travel within the Last 8 Weeks: No Immunization History Tetanus Immunization: >5 Years Exam Narrative Exam Narrative: GENERAL: Well appearing SKIN: Focused skin assessment warm/dry. HEAD: Atraumatic. Normocephalic. EYES: Pupils equal and round. No scleral icterus. No injection or drainage. ENT: No nasal bleeding or discharge. Mucous membranes pink and moist. Tongue is midline. No uvula deviation. NECK: Trachea midline. No JVD. CARDIOVASCULAR: Tachycardic rate and rhythm. No murmur appreciated. RESPIRATORY: No accessory muscle use. Clear to auscultation. Breath sounds equal bilaterally. GASTROINTESTINAL: Abdomen soft, non-tender, nondistended. Hepatic and splenic margins not palpable. MUSCULOSKELETAL: No obvious deformities. No clubbing. No cyanosis. No edema. Full range of motion of the upper and lower extremities bilaterally. 2+ pulses bilaterally. NEUROLOGICAL: Awake and alert. No obvious cranial nerve deficits. Motor grossly within normal limits. Normal speech. PSYCHIATRIC: Appropriate mood and affect; insight and judgment normal. Course Initial Documented Vital Signs Temperature 98.4 F 08/21/18 12:37 Pulse Rate 154 H 08/21/18 12:37 Respiratory Rate 26 H 08/21/18 12:37 Blood Pressure 179/93 H 08/21/18 12:37 Pulse Oximetry 100 08/21/18 12:37 Last Documented Vital Signs Temperature 98.6 F 08/21/18 17:48 Pulse Rate 82 08/21/18 17:48 Respiratory Rate 20 08/21/18 17:48 Blood Pressure 114/83 08/21/18 17:48 Pulse Oximetry 97 08/21/18 17:48 Medical Decision Making MDM Narrative Medical decision making narrative: 42-year-old female that presents to the ED for evaluation of chest pain and tachycardia. Patient was properly examined and was found to have signs and symptoms consistent with appears to be possible cardiac. Patient is tachycardic in the 120s 130s. She does have a history of thyroid disease. Thyroiditis in the differential. Patient was given propanolol per my attendings recommendation to cover for this. She was given aspirin as well. Labs and imaging ordered and showed no sign of acute disease alert and what appears to be tachycardia. Otherwise unremarkable. Patient still somewhat symptomatic. There was essentially unremarkable. Case was discussed with my attending Dr. Celis who recommends admission to r/o ACS. Patient was admitted to the chest pain center by me. Medical Screen Exam Complete: Yes Emergency Medical Condition: Yes Differential Diagnosis Differential Diagnosis: Tachycardia versus SVT versus thyroiditis versus thyroid disease versus PE versus anxiety versus chest pain versus ACS Medical Records Medical records reviewed: Yes I reviewed the patient's medical records. Lab Data Lab results reviewed: Yes I reviewed the patient's lab results. Lab results narrative: Troponin and CK-MB negative. TSH and thyroid negative. Result diagrams: 08/21/18 12:55 08/21/18 14:25 Lab Results 08/21/18 08/21/18 08/21/18 Range/Units 12:55 12:55 14:25 WBC 6.8 (4.0-11.0) th/mm3 RBC 4.83 (4.00-5.30) mil/mm3 Hgb 14.3 (11.6-15.3) gm/dL Hct 41.7 (35.0-46.0) % MCV 86.4 (80.0-100.0) fL MCH 29.5 (27.0-34.0) pg MCHC 34.2 (32.0-36.0) % RDW 13.8 (11.6-17.2) % Plt Count 244 (150-450) th/mm3 MPV 9.6 (7.0-11.0) fL Neut % (Auto) 51.6 (16.0-70.0) % Lymph % (Auto) 38.3 (9.0-44.0) % [place] % (Auto) 7.0 (0.0-8.0) % Eos % (Auto) 2.4 (0.0-4.0) % Baso % (Auto) 0.7 (0.0-2.0) % Neut # (Auto) 3.5 (1.8-7.7) th/mm3 Lymph # (Auto) 2.6 (1.0-4.8) th/mm3 [place] # (Auto) 0.5 (0.0-0.9) th/mm3 Eos # (Auto) 0.2 (0.0-0.4) th/mm3 Baso # (Auto) 0.0 (0.0-0.2) th/mm3 WBC Differential . Differential Comment Auto diff final PT 10.2 (9.8-11.6) sec INR 1.0 Ratio APTT 26.1 (24.3-30.1) sec Sodium Potassium Chloride Carbon Dioxide Anion Gap BUN Creatinine Estimated GFR Random Glucose Calcium Prot Corrected Calcium Total Bilirubin AST ALT Alkaline Phosphatase Total Creatine Kinase CK-MB (CK-2) (0.5-3.6) ng/mL Troponin I B-Natriuretic Peptide 4 (0-100) pg/mL Total Protein Albumin TSH (0.358-3.740) uIU/mL Free T4 (0.76-1.46) ng/dL Free T3 (2.18-3.98) pg/mL 08/21/18 08/21/18 08/21/18 Range/Units 14:25 14:25 17:25 WBC (4.0-11.0) th/mm3 RBC (4.00-5.30) mil/mm3 Hgb (11.6-15.3) gm/dL Hct (35.0-46.0) % MCV (80.0-100.0) fL MCH (27.0-34.0) pg MCHC (32.0-36.0) % RDW (11.6-17.2) % Plt Count (150-450) th/mm3 MPV (7.0-11.0) fL Neut % (Auto) (16.0-70.0) % Lymph % (Auto) (9.0-44.0) % [place] % (Auto) (0.0-8.0) % Eos % (Auto) (0.0-4.0) % Baso % (Auto) (0.0-2.0) % Neut # (Auto) (1.8-7.7) th/mm3 Lymph # (Auto) (1.0-4.8) th/mm3 [place] # (Auto) (0.0-0.9) th/mm3 Eos # (Auto) (0.0-0.4) th/mm3 Baso # (Auto) (0.0-0.2) th/mm3 WBC Differential Differential Comment PT (9.8-11.6) sec INR Ratio APTT (24.3-30.1) sec Sodium Cancelled 144 Potassium Cancelled 3.4 L Chloride Cancelled 112 H Carbon Dioxide Cancelled 20.3 L Anion Gap Cancelled 12 BUN Cancelled 10 Creatinine Cancelled 0.86 Estimated GFR Cancelled 73 L Random Glucose Cancelled 137 H Calcium Cancelled 8.8 Prot Corrected Calcium Cancelled Total Bilirubin Cancelled 0.4 AST Cancelled 12 L ALT Cancelled 22 Alkaline Phosphatase Cancelled 80 Total Creatine Kinase Cancelled 115 107 CK-MB (CK-2) Less than 1.0 (0.5-3.6) ng/mL Troponin I Cancelled Less than 0.02 L Less than 0.02 L B-Natriuretic Peptide (0-100) pg/mL Total Protein Cancelled 6.8 Albumin Cancelled 3.4 TSH 0.649 (0.358-3.740) uIU/mL Free T4 1.19 (0.76-1.46) ng/dL Free T3 3.56 (2.18-3.98) pg/mL Imaging Data Attestation: I personally reviewed and interpreted this imaging study as follows : Radiologist's impression: Chest X-Ray 08/21/18 12:43 CONCLUSION: No acute cardiopulmonary disease Chest CTA 08/21/18 13:01 CONCLUSION: 1. This study is negative for pulmonary embolism. ECG Data Attestation: I personally reviewed and interpreted this ECG as follows: Interpretation: EKG shows sinus tachycardia but no sign of acute ischemia or arrhythmia otherwise. Read by me and attending. Discharge Plan Discharge Disposition Patient Disposition: 30 Still Patient Discharge Details Diagnosis: Chest pain Physicians Team ED Provider: Obey Celis ED Midlevel Provider: Jan Melgoza Primary Care Provider: Cipriano Mace Attending Provider: Marko Santos Status ED Status: Left Department Discharge Information Discharge Date/Time: 08/21/18 16:59
[2018-08-21 15:00] LABS: Albumin 3.4 g/dL (3.4-5.0); Anion Gap 12 meq/L (5-15); Aspartate Aminotransferase 12 U/L (15-37); Blood Urea Nitrogen 10 mg/dL (7-18); Calcium 8.8 mg/dL (8.5-10.1); Carbon Dioxide 20.3 meq/L (21.0-32.0); Chloride 112 meq/L (98-107); Glomerular Filtration Rate 73 mL/min (>89); Glucose,Random 137 mg/dL (74-106); Potassium 3.4 meq/L (3.5-5.1); Sodium 144 meq/L (136-145)
[2018-08-21 15:10] LABS: Alanine Aminotransferase 22 U/L (10-53); Alkaline Phosphatase 80 U/L (45-117); Creatine Kinase 115 U/L (26-192); Free T4 (Free Thyroxine) 1.19 ng/dL (0.76-1.46); Thyroid Stimulating Hormone 0.649 uIU/mL (0.358-3.740); Total Protein 6.8 g/dL (6.4-8.2); Triiodothyronine (T3) Free 3.56 pg/mL (2.18-3.98)
--- NOTE | 2018-08-21 15:54 | CT ---
EXAM DATE: 08/21/2018 3:11 PM EDT AGE/SEX: 42 years / Female INDICATIONS: Short of breath, pressure left side of chest. CLINICAL DATA: This is the patient's initial encounter. Patient reports that signs and symptoms have been present for 3 days and indicates a pain score of 5/10. MEDICAL/SURGICAL HISTORY: Diabetes. None. RADIATION DOSE: 20.69 CTDI (mGy) COMPARISON: None. TECHNIQUE: Volumetric scanning was performed using a multi-row detector CT scanner during bolus infu kristy of 50 ml Omnipaque 350 (iohexol) nonionic water-soluble contrast as a single exam dose. The aman a was post processed with a variety of visualization algorithms including full volume maximum intensi ty projection and sliding thin slab reformation. Using automated exposure control and adjustment of t he mA and/or kV according to patient size, radiation dose was kept as low as reasonably achievable to obtain optimal diagnostic quality images. DICOM format image data is available electronically for r eview and comparison. FINDINGS: Pulmonary Arteries: No filling defects are seen in the pulmonary arteries out to the subsegmental ve ssels. The left and right pulmonary arteries are normal in diameter. Lung: No infiltrates seen. Effusion: None. Mediastinum: No evidence of mediastinal or hilar adenopathy. Other: The axilla is unremarkable. CONCLUSION: 1. This study is negative for pulmonary embolism. Electronically signed by: Elian Hill MD 08/21/2018 3:52 PM EDT
[2018-08-21] MEDS ORDERED: Acetaminophen 500 MG Tablet PO PRN (17:06)
[2018-08-21] MEDS ORDERED: ALPRAZolam 0.25 MG Tablet PO PRN (17:41)
[2018-08-21] MEDS ORDERED: NAPROXEN 500 MG PO PRN (17:42)
[2018-08-21] MEDS ORDERED: SUMATRIPTAN PO PRN (17:42)
[2018-08-21] MEDS ORDERED: Ketorolac Inj 30 MG/ML (IVP) Vial IV.PUSH ONE (17:43)
[2018-08-21] MEDS ORDERED: Dextrose 50% in Water 50 ML Vial IV.PUSH PRN (17:44)
--- NOTE | 2018-08-21 18:07 | P.HPCA ---
History of Present Illness Primary Care Physician: Cipriano Mace DO Chief Complaint: Chest pain History of Present Illness: 42-year-old female with history of borderline diabetes, Darin's, migraines, current smoker, chronic back pain presents emergency room for multiple complaints including palpitations, chest pain, anxiety, diaphoresis, nausea, blurred vision, cannot sleep, and poor appetite.. Onset Tuesday while driving to work. Reports heart pounding and she felt anxious. After rapid heart pounding sensation developed chest discomfort. 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 All symptoms constant since Tuesday. Has not slept since Tuesday, states sleeping only minutes at a time. 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 Location of chest pain left anterior chest, left inframammary area, with radiation to left lateral back. Characterized as "mild ache." No precipitating or relieving factors. No recent illness, fever, or injury. Denies similar chest pain in the past. Difficult to discern associated symptoms due to being anxious, diaphoretic, and nauseous since Tuesday. Follows with endocrinology, next appointment due in October. Diagnosed with Darin's disease. Initially placed on propranolol, however states [place] machine operator stopped propranolol 1 year ago. Follows with pain management for chronic back pain. Last week notes MD stated heart rate was elevated at 115. Pain management MD switched Zoloft to Celexa 2 months ago, reportedly for Celexa benefits with chronic pain. Endorses history of borderline diabetes, placed on metformin. Stopped metformin a few months ago due to dry mouth. No situational stress. Currently on menses. Past cardiac testing None Social history Borderline diabetes. No known hypertension, hyperlipidemia, or coronary artery disease. Current 1 pack/day smoker. No alcohol or recreational drug use. 2 children ages 17 and 13. 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 - Diagnosis (1) Atypical chest pain (2) Anxiety (3) History of borderline diabetes mellitus (4) History of Graves' disease (5) Chronic pain (6) Tobacco use Review of Systems All other systems reviewed negative except as stated in HPI [facility] - History History Provided By: Patient - Medical History Medical History: Medical History (Last Updated 08/21/18 @ 17:58 by YONY Machuca) Borderline type 2 diabetes mellitus Chronic back pain Darin's disease Migraine - Surgical History Surgical History: Surgical History (Last Updated 08/21/18 @ 17:59 by YONY Machuca) H/O tubal ligation H/O: section - Social History I have reviewed the patient's Social History: Yes - Tobacco History Second Hand Smoke Exposure: No Tobacco Use In Past 30 Days: No Smoking Status: Current every day smoker (attempting to quit, smoked 8 cigerettes since Tuesday, decreased from 1 pack/daily. Started smoking age 13.) Tobacco Type: Cigarettes Packs Per Day: 1 Years Smoked: 25 - Alcohol History How Often Do You Have a Drink Containing Alcohol: Never - Substance Use History Substance History: No History of Abuse - Travel History Recent Travel Out of the Country Within the Last 8 Weeks: No - Immunization History Tetanus Immunization: >5 Years Medications and Allergies Active Medications: Active Medications Acetaminophen (Tylenol) 500 mg PO Q4H PRN PRN Reason: HEADACHE Alprazolam (Xanax) 0.25 mg PO Q6H PRN PRN Reason: ANXIETY AND/OR INSOMNIA Ketorolac Tromethamine (Toradol Inj) 30 mg IV.PUSH ONCE ONE Stop: 08/21/18 17:44 Nitroglycerin (Nitrostat Sl) 0.4 mg SL Q5M PRN PRN Reason: CHEST PAIN Non-Formulary Medication (Sumatriptan-Naproxen [Sumatriptan-Naproxen]) 1 tab PO Q2-4H PRN PRN Reason: Migraine Headache Non-Formulary Medication (Gabapentin [Gabapentin]) 600 mg PO DAILY TALA Ondansetron HCl (Zofran Inj) 4 mg IV.PUSH Q6H PRN PRN Reason: NAUSEA Potassium Chloride (K-Dur) 20 meq PO ONCE ONE Stop: 08/21/18 17:44 Sodium Chloride (Ns Flush) 2 ml IV.FLUSH UNSCH PRN PRN Reason: FLUSH AFTER USING IV ACCESS Sodium Chloride (Ns Flush) 2 ml IV.FLUSH BID TALA Sodium Chloride (Ns Flush) 2 ml IV.FLUSH PRN PRN PRN Reason: FLUSH AFTER USING IV ACCESS Allergies Allergy/AdvReac Type Severity Reaction Status Date / Time atropine Allergy Severe SEVERE Verified 08/21/18 12:48 HYPERTENSION, TACHYCARDIA hydromorphone Allergy Severe Itching Verified 08/21/18 12:48 pseudoephedrine Allergy Severe SOB Verified 08/21/18 12:48 Home Medications Medication Instructions Recorded Confirmed Type sumatriptan-naproxen 1 tab PO Q2-4H PRN 06/15/18 08/21/18 History gabapentin 600 mg PO DAILY 08/21/18 08/21/18 History metformin 1,000 mg PO BID 08/21/18 08/21/18 History Exam Vital signs: Vital Signs 08/21/18 12:37 08/21/18 12:49 08/21/18 12:50 Temperature 98.4 F Pulse Rate 154 H 137 H 136 H Respiratory Rate 26 H 18 Blood Pressure 179/93 H 125/76 Pulse Oximetry 100 100 08/21/18 15:25 Temperature Pulse Rate 108 H Respiratory Rate 18 Blood Pressure 118/65 Pulse Oximetry 99 Intake & Output 08/20/18 08/21/18 08/21/18 18:59 06:59 18:59 Weight 68.039 kg Narrative: GENERAL: Alert WN, WD, NAD, pleasant, obese, female HEAD: NC, AT EYES: Sclera clear, conjunctiva without injection, pupils equal and round ENT: Mucous membranes pink and moist NECK: Supple, no masses, trachea midline, no thyroid enlargement CV: RRR, without murmur, rub, gallop, no JVD, S1-S2 no S3-S4. Left inframammary area tender with palpation. No reproducible pain of left anterior chest. RESP: Clear lungs throughout bilateral, no crackles, wheeze, rhonchi, symmetrical chest rise, nonlabored, able to speak in full sentences ABD: Soft, NT, ND, no masses, positive bowel tones EXT: Pulses +2x4, trace dependent edema MS: Normal tone x4 extremities, nontender, no obvious deformities, full range of motion NEURO: CN II through CN XII grossly intact, motor strength 5/5 PSYCH: A+O x3, pleasant affect, appropriate speech, appropriate mood, insight and judgment. Does not appear anxious. SKIN: Normal turgor, normal texture, no lesions, no rashes, brisk cap refill, even hair distribution, multiple tattoos Results 08/21/18 12:55 08/21/18 14:25 Cardiac Enzymes 08/21/18 08/21/18 08/21/18 Range/Units 12:55 14:25 14:25 AST Cancelled 12 L CK-MB (CK-2) Less than 1.0 (0.5-3.6) ng/mL Troponin I Cancelled Less than 0.02 L B-Natriuretic Peptide 4 (0-100) pg/mL Coagulation 08/21/18 08/21/18 Range/Units 12:55 14:25 PT 10.2 (9.8-11.6) sec APTT 26.1 (24.3-30.1) sec B-Natriuretic Peptide 4 (0-100) pg/mL CBC 08/21/18 Range/Units 12:55 WBC 6.8 (4.0-11.0) th/mm3 RBC 4.83 (4.00-5.30) mil/mm3 Hgb 14.3 (11.6-15.3) gm/dL Hct 41.7 (35.0-46.0) % Plt Count 244 (150-450) th/mm3 Neut # (Auto) 3.5 (1.8-7.7) th/mm3 Lymph # (Auto) 2.6 (1.0-4.8) th/mm3 [place] # (Auto) 0.5 (0.0-0.9) th/mm3 Eos # (Auto) 0.2 (0.0-0.4) th/mm3 Baso # (Auto) 0.0 (0.0-0.2) th/mm3 Comprehensive Metabolic Panel 08/21/18 08/21/18 Range/Units 14:25 14:25 Sodium Cancelled 144 Potassium Cancelled 3.4 L Chloride Cancelled 112 H Carbon Dioxide Cancelled 20.3 L BUN Cancelled 10 Creatinine Cancelled 0.86 Calcium Cancelled 8.8 AST Cancelled 12 L ALT Cancelled 22 Alkaline Phosphatase Cancelled 80 Total Protein Cancelled 6.8 Albumin Cancelled 3.4 Intake and Output 08/21/18 08/21/18 08/21/18 06:59 14:59 22:59 Other: Weight 68.039 kg Patient Weight 08/22/18 06:59 Weight 68.039 kg - Imaging and Cardiology Imaging: Impressions Chest X-Ray 08/21/18 12:43 CONCLUSION: No acute cardiopulmonary disease Chest CTA 08/21/18 13:01 CONCLUSION: 1. This study is negative for pulmonary embolism. EKG interpretations - EKG EKG results cardiology: normal ST/T (First EKG normal sinus tachycardia, left axis deviation, no ST-T segment changes. Second EKG normal sinus rhythm, no ST- T segment change) - Dysrhythmias Sinus rhythms and dysrhythmias: sinus tachycardia Caprini VTE Risk Assessment Caprini VTE Risk Assessment: No/Low Risk (score <= 1) Caprini Risk Assessment Model: Point Value = 1 Point Value = 2 Point Value = 3 Point Value = 5 Age 41-60 Minor surgery BMI > 25 kg/m2 Swollen legs Varicose veins or History of unexplained or recurrent spontaneous Oral contraceptives or hormone replacement Sepsis (< 1 month) Serious lung disease, including pneumonia (< 1 month) Abnormal pulmonary function Acute myocardial infarction Congestive heart failure (< 1 month) History of inflammatory bowel disease Medical patient at bed rest Age 61-74 Arthroscopic surgery Major open surgery (> 45 min) Laparoscopic surgery (> 45 min) Malignancy Confined to bed (> 72 hours) Immobilizing plaster cast Central venous access Age >= 75 History of VTE Family history of VTE Factor V Leiden Prothrombin [id number] Lupus anticoagulant Anticardiolipin antibodies Elevated serum homocysteine Heparin-induced thrombocytopenia Other congenital or acquired thrombophilia Stroke (< 1 month) Elective arthroplasty Hip, pelvis, or leg fracture Acute spinal cord injury (< 1 month) Prophylaxis Regimen: Total Risk Factor Score Risk Level Prophylaxis Regimen 0-1 Low Early ambulation 2 Moderate Order ONE of the following: *Sequential Compression Device (SCD) *Heparin 5000 units SQ BID 3-4 Higher Order ONE of the following medications: *Heparin 5000 units SQ TID *Enoxaparin/Lovenox 40 mg SQ daily (WT < 150 kg, CrCl > 30 mL/min) *Enoxaparin/Lovenox 30 mg SQ daily (WT < 150 kg, CrCl > 10-29 mL/min) *Enoxaparin/Lovenox 30 mg SQ BID (WT < 150 kg, CrCl > 30 mL/min) AND/OR *Sequential Compression Device (SCD) 5 or more Highest Order ONE of the following medications: *Heparin 5000 units SQ TID (Preferred with Epidurals) *Enoxaparin/Lovenox 40 mg SQ daily (WT < 150 kg, CrCl > 30 mL/min) *Enoxaparin/Lovenox 30 mg SQ daily (WT < 150 kg, CrCl > 10-29 mL/min) *Enoxaparin/Lovenox 30 mg SQ BID (WT < 150 kg, CrCl > 30 mL/min) AND *Sequential Compression Device (SCD) Assessment and Plan - Assessment (1) Atypical chest pain Code(s): R07.89 - Other chest pain Status: Acute Plan: Admitted to chest pain center. Continue ruling out ACS with 3 sets of EKGs and cardiac enzymes. Monitor on telemetry overnight. Will be seen by Dr. Teresa Shelton in a.m. Further disposition to follow. (2) Anxiety Code(s): F41.9 - Anxiety disorder, unspecified Status: Acute Plan: Xanax 0.25 mg every 6 hours as needed as needed for anxiety and/or insomnia. Continue Celexa once updated on EMR. (3) History of borderline diabetes mellitus Code(s): Z87.898 - Personal history of other specified conditions Status: Chronic Plan: Add hemoglobin A1c to specimen in lab. Briefly discussed the importance of tight blood glucose control, dietary, and lifestyle modifications. Reinforce tomorrow as well. Discussed benefit of metformin and importance of vacation compliance. (4) History of Graves' disease Code(s): Z86.39 - Personal history of other endocrine, nutritional and metabolic disease Status: Chronic Plan: Thyroid panel unremarkable. Strongly encouraged follow up with [place] machine operator upon discharge for possible further laboratory studies. (5) Chronic pain Code(s): G89.29 - Other chronic pain Status: Chronic Plan: Continue gabapentin. Encouraged weight loss and adapting healthy lifestyle including daily activity. (6) Tobacco use Code(s): Z72.0 - Tobacco use Status: Chronic Plan: Strongly encouraged and stressed importance of tobacco cessation. Instructed to quit smoking. (5) Chronic pain Qualifiers: Chronic pain type: other chronic pain Qualified Code(s): G89.29 - Other chronic pain
[2018-08-21 18:28] LABS: Creatine Kinase 107 U/L (26-192)
[2018-08-21 21:27] LABS: Hemoglobin A1c 5.9 % (4.3-6.0)
[2018-08-21] MEDS: Insulin NovoLOG Aspart Correctional Sugar Inj SQ SCH (21:50)
[2018-08-21 22:23] LABS: Creatine Kinase 106 U/L (26-192)
--- NOTE | 2018-08-22 08:58 | P.PNCA ---
Subjective Interval history: No further chest discomfort. Able to rest overnight. Offers no complaints. Medications and Allergies Active Medications: Active Medications Acetaminophen (Tylenol) 500 mg PO Q4H PRN PRN Reason: HEADACHE Alprazolam (Xanax) 0.25 mg PO Q6H PRN PRN Reason: ANXIETY AND/OR INSOMNIA Last Admin: 08/21/18 20:36 Dose: 0.25 mg Dextrose (D50w Vial) 50 ml IV.PUSH UNSCH PRN PRN Reason: PER HYPOGLYCEMIA PROTOCOL Gabapentin (Neurontin) 600 mg PO DAILY [facility] Last Admin: 08/22/18 08:25 Dose: 600 mg Glucagon (Glucagon Inj) 1 mg OTHER PRN PRN PRN Reason: for Hypoglycemia Protocol Insulin Aspart (Novolog Insulin Correctional Sugar Inj) 0 unit SQ ACHS [facility]; Protocol Last Admin: 08/21/18 21:50 Dose: Not Given Nitroglycerin (Nitrostat Sl) 0.4 mg SL Q5M PRN PRN Reason: CHEST PAIN Ondansetron HCl (Zofran Inj) 4 mg IV.PUSH Q6H PRN PRN Reason: NAUSEA Last Admin: 08/21/18 20:39 Dose: 4 mg Pt:Treximet( Sumatriptan 85 Mg/Naproxen 500 Mg) 0 each PO Q2H PRN PRN Reason: SEE LABEL COMMENTS Sodium Chloride (Ns Flush) 2 ml IV.FLUSH BID [facility] Last Admin: 08/21/18 21:50 Dose: 2 ml Sodium Chloride (Ns Flush) 2 ml IV.FLUSH PRN PRN PRN Reason: FLUSH AFTER USING IV ACCESS Allergies Allergy/AdvReac Type Severity Reaction Status Date / Time atropine Allergy Severe SEVERE Verified 08/21/18 12:48 HYPERTENSION, TACHYCARDIA hydromorphone Allergy Severe Itching Verified 08/21/18 12:48 pseudoephedrine Allergy Severe SOB Verified 08/21/18 12:48 Home Medications Medication Instructions Recorded Confirmed Type sumatriptan-naproxen 1 tab PO Q2-4H PRN 06/15/18 08/21/18 History duloxetine 60 mg PO DAILY 08/21/18 08/21/18 History gabapentin 600 mg PO DAILY 08/21/18 08/21/18 History metformin 1,000 mg PO BID 08/21/18 08/21/18 History Physical Exam Vital signs: Vital Signs 08/21/18 12:37 08/21/18 12:49 08/21/18 12:50 Temperature 98.4 F Pulse Rate 154 H 137 H 136 H Respiratory Rate 26 H 18 Blood Pressure 179/93 H 125/76 Pulse Oximetry 100 100 08/21/18 15:25 08/21/18 17:48 08/21/18 19:45 Temperature 98.6 F Pulse Rate 108 H 82 Respiratory Rate 18 20 20 Blood Pressure 118/65 114/83 Pulse Oximetry 99 97 08/21/18 20:00 08/22/18 00:00 08/22/18 03:50 Temperature 98.4 F 98 F 97.7 F Pulse Rate 88 88 80 Respiratory Rate 16 16 17 Blood Pressure 120/85 130/63 109/61 Pulse Oximetry 97 97 97 08/22/18 04:33 08/22/18 08:00 Temperature 97.9 F Pulse Rate 91 H 78 Respiratory Rate 16 Blood Pressure 132/65 Pulse Oximetry 98 Intake & Output 08/21/18 08/22/18 08/22/18 18:59 06:59 18:59 Weight 68.039 kg 68.039 kg Other: # Voids 3 Date of Last Bowel Movement 08/21/18 Weight On Admission 68.03 kg - Constitutional no acute distress, cooperative - Routine HEENT Exam Head: Present: normocephalic, atraumatic - Routine Respiratory Exam Present: CTA bilaterally. Absent: wheezes, crackles - Routine Cardiovascular Exam Present: RRR. Absent: murmur, gallop, rubs - Routine Abdominal Exam Present: soft, normoactive bowel sounds. Absent: tenderness, distended Results 08/21/18 12:55 08/21/18 14:25 Cardiac Enzymes 08/21/18 08/21/18 08/21/18 Range/Units 12:55 14:25 14:25 AST Cancelled 12 L CK-MB (CK-2) Less than 1.0 (0.5-3.6) ng/mL Troponin I Cancelled Less than 0.02 L B-Natriuretic Peptide 4 (0-100) pg/mL 08/21/18 08/21/18 Range/Units 17:25 21:00 AST CK-MB (CK-2) (0.5-3.6) ng/mL Troponin I Less than 0.02 L Less than 0.02 L B-Natriuretic Peptide (0-100) pg/mL Coagulation 08/21/18 08/21/18 Range/Units 12:55 14:25 PT 10.2 (9.8-11.6) sec APTT 26.1 (24.3-30.1) sec B-Natriuretic Peptide 4 (0-100) pg/mL CBC 08/21/18 Range/Units 12:55 WBC 6.8 (4.0-11.0) th/mm3 RBC 4.83 (4.00-5.30) mil/mm3 Hgb 14.3 (11.6-15.3) gm/dL Hct 41.7 (35.0-46.0) % Plt Count 244 (150-450) th/mm3 Neut # (Auto) 3.5 (1.8-7.7) th/mm3 Lymph # (Auto) 2.6 (1.0-4.8) th/mm3 [place] # (Auto) 0.5 (0.0-0.9) th/mm3 Eos # (Auto) 0.2 (0.0-0.4) th/mm3 Baso # (Auto) 0.0 (0.0-0.2) th/mm3 Comprehensive Metabolic Panel 08/21/18 08/21/18 Range/Units 14:25 14:25 Sodium Cancelled 144 Potassium Cancelled 3.4 L Chloride Cancelled 112 H Carbon Dioxide Cancelled 20.3 L BUN Cancelled 10 Creatinine Cancelled 0.86 Calcium Cancelled 8.8 AST Cancelled 12 L ALT Cancelled 22 Alkaline Phosphatase Cancelled 80 Total Protein Cancelled 6.8 Albumin Cancelled 3.4 Intake and Output 08/21/18 08/22/18 08/22/18 22:59 06:59 14:59 Other: # Voids 3 Date of Last Bowel Movement 08/21/18 08/21/18 Weight 68.039 kg 68.039 kg Weight On Admission 68.03 kg - Imaging and Cardiology Imaging: Impressions Chest X-Ray 08/21/18 12:43 CONCLUSION: No acute cardiopulmonary disease Chest CTA 08/21/18 13:01 CONCLUSION: 1. This study is negative for pulmonary embolism. Assessment and Plan - Assessment (1) Atypical chest pain Code(s): R07.89 - Other chest pain Status: Acute Plan: Admitted to chest pain center. Monitor on telemetry overnight. ACS ruled out overnight. Seen and evaluated by Dr. Shelton. Proceed with nuclear ETT. If cardiac testing unremarkable, plans are to discharge home with follow-up with her primary care provider. Agreeable to plan of care. HCG ordered, however patient currently on menses and has history of tubal ligation. (2) Anxiety Code(s): F41.9 - Anxiety disorder, unspecified Status: Acute Plan: Xanax 0.25 mg every 6 hours as needed as needed for anxiety and/or insomnia. Continue Celexa once updated on EMR. (3) History of borderline diabetes mellitus Code(s): Z87.898 - Personal history of other specified conditions Status: Chronic Plan: Hemoglobin A1c 5.9%. Discussed results with patient. Reinforced importance of daily activity, weight loss, dietary modifications. Follow-up with primary care provider and notify primary care provider of her decision to stop metformin (4) History of Graves' disease Code(s): Z86.39 - Personal history of other endocrine, nutritional and metabolic disease Status: Chronic Plan: Thyroid panel unremarkable. Strongly encouraged follow up with stable helper upon discharge for possible further laboratory studies. desk monitor reviewed without acute findings. (5) Chronic pain Code(s): G89.29 - Other chronic pain Status: Chronic Plan: Continue gabapentin. Encouraged weight loss and adapting healthy lifestyle including daily activity. (6) Tobacco use Code(s): Z72.0 - Tobacco use Status: Chronic Plan: Strongly encouraged and stressed importance of tobacco cessation. Instructed to quit smoking. (5) Chronic pain Qualifiers: Chronic pain type: other chronic pain Qualified Code(s): G89.29 - Other chronic pain
[2018-08-22] MEDS ORDERED: Gabapentin 300 MG Capsule PO SCH (09:00)
[2018-08-22] MEDS ORDERED: SUMATRIPTAN PO PRN (09:00)
[2018-08-22] MEDS ORDERED: NAPROXEN 500 MG PO PRN (09:00)
[2018-08-22] MEDS: Insulin NovoLOG Aspart Correctional Sugar Inj SQ SCH ×2 (09:02→13:34)
[2018-08-22 12:03] VITALS: BP 136/73; PULSE 74; RESP 18; TEMP 98; O2SAT 99
--- NOTE | 2018-08-22 14:34 | NM ---
EXAM DATE: 08/22/2018 10:55 AM EDT AGE/SEX: 42 years / Female INDICATIONS: Angina. . Left sided chest pain. CLINICAL DATA: This is the patient's initial encounter. Patient reports that signs and symptoms have been present for 1 day and indicates a pain score of 3/10. MEDICAL/SURGICAL HISTORY: Diabetes mellitus type II. Darin disease. Tubal ligation. Nicolás garth section. COMPARISON: No prior exams available for comparison. DOSE: 8.1 mCi Tc 99m Myoview at rest 26.3 mCi [id number] at stress REST HEART RATE: 100 BPM TARGET HEART RATE: 152 BPM MAX HEART RATE: 162 BPM REST BLOOD PRESSURE: 132/78 mmHg MAX BLOOD PRESSURE: 140/80 mmHg EJECTION FRACTION: 64 % TECHNIQUE: The patient underwent upright treadmill exercise in the chest pain center. Continuous EC G tracing was monitored during stress. Gated SPECT imaging was performed after stress, and conventio nal SPECT imaging was performed at rest. The examination was performed on a SPECT/CT scanner, both a ttenuation-corrected and non-corrected datasets were reviewed. FINDINGS: Distribution: The maximum perfused segment at stress is in the inferior wall. Perfusion: The pattern of perfusion at stress is within normal limits. Gated Study: There are intact wall motion and wall thickening without hypokinetic or dyskinetic segme nts. The ejection fraction is calculated at 64%. RISK CATEGORY: Low (<1% Annual Motality Rate) CONCLUSION: 1. Unremarkable myocardial perfusion exam. Electronically signed by: Lorenzo Chiang MD 08/22/2018 2:32 PM EDT
--- NOTE | 2018-08-23 06:51 | ECG ---
Date Performed: 08/21/2018 Time Performed: 12:50:26 PTAGE: 42 years EKG: SINUS TACHYCARDIA MARKED LEFT AXIS DEVIATION ABNORMAL ECG Compared to PREVIOUS TRACING , now tachycardic PREVIOUS TRACIN09/15/2015 16.24 DOCTOR: Teresa Shelton Interpretating Date/Time 08/23/2018 06:51:37
--- NOTE | 2018-08-23 06:51 | TR ---
Date Performed: 08/22/2018 Time Performed: 13:15:50 DOCTOR: Teresa Shelton DRUG LIST: CLINICAL HISTORY: REASON FOR TEST: REASON FOR ENDING: OBSERVATION: CONCLUSION: Shad protocol completed. Stopped sec to exceeding target heart rate and leg fatigue . Maximum HR=188 Max HR Achieved=91.0% Resting ZK=201/78 Total Exercise Time=6:27. No reprod chest di [place]. No ectopy. No st t segment changes. Normal bp response. Fair exercise tolerance. Recovery q uick and unremarkable. Nuclear images pending. No ischemia on ETT COMMENTS: No ischemia on ETT
--- NOTE | 2018-08-23 06:51 | ECG ---
Date Performed: 08/21/2018 Time Performed: 17:42:05 PTAGE: 42 years EKG: Sinus rhythm MARKED LEFT AXIS DEVIATION ABNORMAL ECG Compared to PREVIOUS TRACING , no longer tachycardic DOCTOR: Teresa Shelton Interpretating Date/Time 08/23/2018 06:51:10
--- NOTE | 2018-08-23 06:51 | ECG ---
Date Performed: 08/21/2018 Time Performed: 21:07:33 PTAGE: 42 years EKG: Sinus rhythm BORDERLINE LEFT AXIS DEVIATION BORDERLINE ECG Since PREVIOUS TRACING , no significant change noted PREVIOUS TRACIN08/21/2018 17.42 DOCTOR: Teresa Shelton Interpretating Date/Time 08/23/2018 06:50:42
== END 2018-08-22 16:01 | disposition home or self-care (01) ==
LOC: NEPC 12:33 → NEDA 12:33 → NEPGCP 16:40
PROVIDERS: ADMIT Internal Medicine Cardiovascular Disease; ATTEND Internal Medicine Cardiovascular Disease